=== PATIENT | female | born 2000 | race Caucasian/White ===

== ENCOUNTER 2023-04-14 12:06 | Emergency (ER) | payer OTHER ==
[~2023-04-14] VITALS: Ht 157.5 cm; Wt 63.5 kg
[2023-04-14 12:34] VITALS: BP_SYST 157; PULSE 77; RESP 16; TEMP 97.4; O2SAT 98
[2023-04-14 13:02] VITALS: BP_SYST 105; PULSE 65; TEMP 97.6; O2SAT 99
[2023-04-14 13:16] LABS: STREPTOCOCCUS A SCREEN (RAPID) NEGATIVE (NEGATIVE)
[2023-04-14 13:20] LABS: COVID19 ANTIGEN SOFIA FIA NEGATIVE (NEGATIVE)
[2023-04-14] MEDS ORDERED: AZIT500T10 PO (13:40)
== END 2023-04-14 13:48 | disposition home or self-care (01) ==
LOC: SED 12:06
DX: J02.9 Acute pharyngitis, unspecified (principal); H92.03 Otalgia, bilateral; Z88.1 Allergy status to other antibiotic agents; Z79.899 Other long term (current) drug therapy; Z20.822 Contact with and (suspected) exposure to COVID-19
CPT/HCPCS: 36415; 86403; 87081; 99283